=== PATIENT | female | born 1965 | race Caucasian/White ===

== ENCOUNTER 2017-06-23 16:55 | Observation (INO) | payer SELFPAY ==
[2017-06-23] MEDS ORDERED: ASPIRIN 81 MG CHEWABLE TABLET PO ONE (17:12)
[2017-06-23] MEDS ORDERED: 0.9 % SODIUM CHLORIDE 500ML 500 ML IV ONE (17:18)
[2017-06-23 17:22] LABS: BASO % 0.5 % (0-6); EOS % 1.5 % (0-6); GRAN % 72.7 % (47-80); HEMATOCRIT 38.6 % (35.0-47.0); HEMOGLOBIN 12.6 gm/dl (11.6-16.0); LYMPH % 17.6 % (16-45); MEAN CELL VOLUME 95.8 fl (81-97); MEAN CORPUSCULAR HEMOGLOBIN 31.3 pg (27-33); MEAN CORPUSCULAR HGB CONC 32.6 g/dl (32-36); MEAN PLATELET VOLUME 11.5 fl (7.4-10.4); MONO % 7.7 % (0-9); PLATELET COUNT 275 K/uL (130-400); RED BLOOD COUNT 4.03 M/uL (3.80-5.40); RED CELL DISTRIBUTION WIDTH 15.1 % (11.5-14.5); WHITE BLOOD COUNT W/O DIFF 13.1 K/uL (4.2-12.2)
[2017-06-23] MEDS: NITROGLYCERIN 0.4MG SL TABLET #25 BTL SL PRN ×6 (17:25→21:50)
--- NOTE | 2017-06-23 17:28 | Emergency Department Record ---
History of Present Illness - General Chief Complaint: Chest Pain Stated Complaint: CHEST PAIN Time Seen by Provider: 06/23/17 17:06 Source: Patient Mode of Arrival: Wheelchair Limitations: No limitations - History of Present Illness Initial Comments: pt developed cp while watching a game on tv and eating almonds 45 minutes ago. she states it is sharp and radiates from her l chest down her l arm. it is constant. pt broke out in a sweat. she has never had anything like this before. pt has high cholesterol and hypertension and is supposed to be taking meds for this but has not been taking them because she lost her insurance. pt smokes. pt has no cardiac family hx. pt went on a long trip a week ago to [place]. Complaint: Chest pain Onset/Timin -: Minutes(s) Onset: During rest Pain Location: Substernal Pain Radiation: LUE Severity scale (1-10): 8 Quality: Other Consistency: Constant Improves With: Nothing Worsens With: Nothing Anginal Symptoms: Diaphoresis Treatments Prior to Arrival: None - Related Data On Oral Contraceptives: No Home Medications Medication Instructions Recorded Confirmed Last Taken No Home Med [NO HOME MEDS] 06/23/17 06/23/17 Unknown Allergies Allergy/AdvReac Type Severity Reaction Status Date / Time amoxicillin [From Augmentin] Allergy HIVES Verified 06/23/17 17:01 clavulanic acid Allergy HIVES Verified 06/23/17 17:01 [From Augmentin] Travel Screening - Travel/Exposure Within Last 30 Days Have you traveled within the last 30 days?: No Review of Systems Reviewed: No additional complaints except as noted below Constitutional: Reports: As per HPI. Denies: Chills, Fever, Malaise, Night sweats, Weakness, Weight change Eyes: Reports: As per HPI. Denies: Eye discharge, Eye pain, Photophobia, Vision change ENT: Reports: As per HPI. Denies: Congestion, Dental pain, Ear pain, Epistaxis , Hearing loss, Throat pain Respiratory: Reports: As per HPI. Denies: Cough, Dyspnea, Hemoptysis, Stridor, Wheezes Cardiovascular: Reports: As per HPI. Denies: Arrhythmia, Chest pain, Dyspnea on exertion, Edema, Murmurs, Orthopnea, Palpitations, Paroxysmal nocturnal dyspnea, Rheumatic Fever, Syncope Endocrine: Reports: As per HPI. Denies: Fatigue, Heat or cold intolerance, Polydipsia, Polyuria Gastrointestinal: Reports: As per HPI. Denies: Abdominal pain, Constipation, Diarrhea, Hematemesis, Hematochezia, Melena, Nausea, Vomiting Genitourinary: Reports: As per HPI. Denies: Abnormal menses, Discharge, Dyspareunia, Dysuria, Frequency, Hematuria, Incontinence, Retention, Urgency Musculoskeletal: Reports: As per HPI. Denies: Arthralgia, Back pain, Gout, Joint swelling, Myalgia, Neck pain Skin: Reports: As per HPI. Denies: Bruising, Change in color, Change in hair/ nails, Lesions, Pruritus, Rash Neurological: Reports: As per HPI. Denies: Abnormal gait, Confusion, Headache, Numbness, Paresthesias, Seizure, Tingling, Tremors, Vertigo, Weakness Psychiatric: Reports: As per HPI. Denies: Anxiety, Auditory hallucinations, Depression, Homicidal thoughts, Suicidal thoughts, Visual hallucinations Hematological/Lymphatic: Reports: As per HPI. Denies: Anemia, Blood Clots, Easy bleeding, Easy bruising, Swollen glands Past Medical History - SOCIAL HISTORY Smoking Status: Current every day smoker Alcohol Use: None Drug Use: None - RESPIRATORY Hx Respiratory Disorders: No - CARDIOVASCULAR Hx Cardio Disorders: No - NEURO Hx Neuro Disorders: No - GI Hx GI Disorders: No - Hx Genitourinary Disorders: No - ENDOCRINE Hx Endocrine Disorders: No - MUSCULOSKELETAL Hx Musculoskeletal Disorders: No - PSYCH Hx Psych Problems: No - HEMATOLOGY/ONCOLOGY Hx Hematology/Oncology Disorders: No Family Medical History Any Significant Family History?: Yes Hx Heart Disease: Grandparents Physical Exam - General General Appearance: Alert, Oriented x3, Cooperative, Mild distress - Head Head exam: Normal inspection - Eye Eye exam: Normal appearance, PERRL, EOMI Pupils: Normal accommodation - ENT ENT exam: Normal exam, Mucous membranes moist, Normal external ear exam, Normal orophraynx Ear exam: Normal external inspection. negative: External canal tenderness Nasal Exam: Normal inspection. negative: Discharge, Sinus tenderness Mouth exam: Normal external inspection, Tongue normal Teeth exam: Normal inspection. negative: Dental caries Throat exam: Normal inspection. negative: Tonsillar erythema, Tonsillar exudate - Neck Neck exam: Normal inspection, Full ROM. negative: Tenderness - Respiratory Respiratory exam: Normal lung sounds bilaterally. negative: Respiratory distress - Cardiovascular Cardiovascular Exam: Regular rate, Normal rhythm, Normal heart sounds - GI/Abdominal GI/Abdominal exam: Soft, Normal bowel sounds. negative: Tenderness - Rectal Rectal exam: Deferred - exam: Deferred - Extremities Extremities exam: Normal inspection, Full ROM, Normal capillary refill. negative: Tenderness - Back Back exam: Reports: Normal inspection, Full ROM. Denies: Muscle spasm, Rash noted, Tenderness - Neurological Neurological exam: Alert, CN II-XII intact, Normal gait, Oriented X3 - Psychiatric Psychiatric exam: Normal affect, Normal mood - Skin Skin exam: Dry, Intact, Normal color, Warm Course Vital Signs 06/23/17 16:56 Pulse Rate 54 L Respiratory 12 Rate Blood Pressure 169/105 Pulse Ox 97 - Reevaluation(s) Reevaluation #1: 06/23/17 18:57 ntg did not help pain. Medical Decision Making - Lab Data Result diagrams: 06/23/17 17:10 06/23/17 17:10 Disposition Disposition: Admit Clinical Impression: Chest pain Qualifiers: Chest pain type: unspecified Qualified Code(s): R07.9 - Chest pain, unspecified Disposition: Still a Patient at [facility] Decision to Admit: Admit from ER Decision to Admit Date: 06/23/17 Decision to Admit Time: 18:26 Condition: (2) Stable Forms: Patient Portal Access Quality - Quality Measures Quality Measures: N/A - Blood Pressure Screening Does Patient Have Any of the Following: No Blood Pressure Classification: Hypertensive Reading Systolic Measurement: 169 Diastolic Measurement: 105 Screening for High Blood Pressure: < First Hypertensive BP, F/U Documented > [ [id number]] First Hypertensive Follow-up Interventions: Follow-up with rescreen GT 1 day and LT 4 weeks., Referral to alternative/primary care provider.
[2017-06-23 17:34] LABS: ANION GAP 8.3 (7-16); BLOOD UREA NITROGEN 11 mg/dL (7-17); CARBON DIOXIDE 25.7 mmol/L (22-30); CREATINE PHOSPHOKINASE 114 U/L (30-135); CREATININE 0.9 mg/dL (0.52-1.04); EST GLOMERULAR FILTRATION RATE > 60 ml/min; GLUCOSE,RANDOM 147 mg/dL (70-110)
[2017-06-23] MEDS ORDERED: MORPHINE SULFATE 5 MG/ML PFS IVP ONE (17:43)
[2017-06-23 17:47] LABS: TROPONIN I < 0.012 ng/mL (0.00-0.034)
[2017-06-23] MEDS ORDERED: ONDANSETRON HCL IV 4 MG/2 ML VIAL IVP ONE (18:51)
[2017-06-23] MEDS ORDERED: KETOROLAC 30 MG/ML VIAL IVP ONE (18:51)
[2017-06-23] MEDS ORDERED: TEMAZEPAM 15 MG CAPSULE PO PRN (21:11)
[2017-06-23 22:15] LABS: CKMB 5.8 ug/L (0-6)
[2017-06-23 22:35] LABS: TROPONIN I 0.336 ng/mL (0.00-0.034)
--- NOTE | 2017-06-23 22:47 | Physician Progress Note ---
Subjective - Date Date of Physician Progress Note: 06/23/17 - Subjective Subjective Comment: 9:57pm- Gloria RN, contact me re patient's L sided CP that radiated down left arm. This resolved with 3 nitro. EKG ordered. per nursing staff, NSR occ PVCS. repeat troponin ordered which is elevated at .336 (previously normal). ED physician, Dr. Church, contacted. He reviewed patient's EKG which he states is NSR with lateral lead depression (unchanged from EKG performed earlier in the ED per Dr. Church). during CP, gloria reports BP 141/100, BP 121/70 following 3 Nitros. Pain rated 7/10. I did ask if he evaluated patient, however he states the emergency room is too full for him to leave at this time. While I was on the phone with Dr. Church, Gloria, the nurse, was getting in [place] [facility] [place] [facility] [place] need [place]. During this time, patient expressed her choice to not be transferred. She said she wanted a "second opinion." Gloria reminded patient that Dr. Church also found patient appropriate to transfer for further cardiac care. I was placed on the phone with patient and explained what her EKG and labs may indicate she's having a heart attack. She states " i don't care, I want to go home." She started attempting to pull her IV out per nursing. She states " i'm going home." Gloria then got on the phone and states he's going to manage patient and call me back. I overheard Gloria also educating patient on what may be going on and how she may not live if she leaves the hospital against our advice. 10:20- Dr. Church contacted. 10:20- Gloria discussing need for transfer with patient 10:30- Gloria contacted me re patient's request to leave. Gloria and I educating patient on heart damage/myocardial infarctions 10:40- Gloria called, patient left AMA. signed AMA paper work. Patient's present during this time. He encouraged patient to listen to staff, however patient' threatened to punch her in the face and left. agrees to take patient immediately to a larger hospital (such as [facility]) if she begins having CP, upper extremity pain, sweating, diff in breathing). agrees with plan. both and left the hospital. Objective - Vital Signs Vital Signs: Vital Signs - Last 24 Hrs Temp Pulse Pulse Resp BP Pulse Ox 06/23/17 21:50 69 20 98 06/23/17 21:00 78 16 06/23/17 20:49 98.7 F 82 18 136/107 98 - General General Appearance: Alert, Oriented x3, Cooperative, Mild distress Limitations: No limitations - Head Head exam: Normal inspection - Eye Eye exam: Normal appearance, PERRL, EOMI Pupils: Normal accommodation - ENT ENT exam: Normal exam, Mucous membranes moist, Normal external ear exam, Normal orophraynx Ear exam: Normal external inspection. negative: External canal tenderness Nasal Exam: Normal inspection. negative: Discharge, Sinus tenderness Mouth exam: Normal external inspection, Tongue normal Teeth exam: Normal inspection. negative: Dental caries Throat exam: Normal inspection. negative: Tonsillar erythema, Tonsillar exudate - Neck Neck exam: Normal inspection, Full ROM. negative: Tenderness - Respiratory Respiratory exam: Normal lung sounds bilaterally. negative: Respiratory distress - Cardiovascular Cardiovascular Exam: Regular rate, Normal rhythm, Normal heart sounds - GI/Abdominal GI/Abdominal exam: Soft, Normal bowel sounds. negative: Tenderness - Rectal Rectal exam: Deferred - exam: Deferred - Extremities Extremities exam: Normal inspection, Full ROM, Normal capillary refill. negative: Tenderness - Back Back exam: Reports: Normal inspection, Full ROM. Denies: Muscle spasm, Rash noted, Tenderness - Neurological Neurological exam: Alert, CN II-XII intact, Normal gait, Oriented X3 - Psychiatric Psychiatric exam: Normal affect, Normal mood - Skin Skin exam: Dry, Intact, Normal color, Warm Results - Labs Result Diagrams: 06/23/17 17:10 06/23/17 17:10 Labs Last 24 Hours: Laboratory Results - last 24 hr 06/23/17 21:38 CK-MB (CK-2) 5.8 Troponin I 0.336 H* DVT/PE Assessment - Risk for VTE Risk for VTE: Yes Risk Level: High Risk Assessment Date: 06/23/17 Risk Assessment Time: 22:45 VTE Orders Placed or Will Be Placed: No VTE Reason for No Prophylaxis: Treatment Not Tolerated (patient left ama) - Active Medicaitons Current Medications: Current Medications Aspirin (Ecotrin (Ec)) 325 mg PO DAILY AC Sodium Chloride () 500 mls @ 15 mls/hr IV .Q24H ONE Stop: 06/24/17 17:17 Last Admin: 06/23/17 17:23 Dose: 15 mls/hr Temazepam (Restoril) 15 mg PO QHS PRN PRN Reason: INSOMNIA AMI Plan - Labs Result Diagrams: 06/23/17 17:10 06/23/17 17:10
--- NOTE | 2017-06-24 01:38 | CT ANGIOGRAM REPORT ---
EXAM: CT ANGIOGRAM CHEST CTA w contrast HISTORY: CHEST PAIN. TECHNIQUE: CT angiography of the thorax is performed following intravenous contrast administration. 91 mL of Omnipaque-350 contrast are used for this examination. Coronal and sagittal postprocessed MIP images are performed on an independent workstation as part of this examination. COMPARISON: None. FINDINGS: No aortic aneurysm or aortic dissection. 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 There are no pulmonary emboli. There is no area of lung consolidation. No pleural or pericardial effusion. There is no lung mass or lung nodule identified. No mediastinal mass or adenopathy. No enlarged hilar lymph nodes. A few faint coronary artery calcifications are present. Limited images of the upper abdomen demonstrate enlargement of the left adrenal gland. Right adrenal gland unremarkable. Upper abdomen otherwise unremarkable. IMPRESSION: 1. NO PULMONARY EMBOLI ARE SEEN. NO AORTIC ANEURYSM OR AORTIC DISSECTION. 2. 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 3. NO ACUTE THORACIC PROCESS IDENTIFIED. 4. TRACE AMOUNT OF CORONARY ARTERY CALCIFICATION PRESENT. 5. ENLARGEMENT OF THE LEFT ADRENAL GLAND, POSSIBLY REPRESENTING AN ADRENAL ADENOMA. UPPER ABDOMEN OTHERWISE UNREMARKABLE. CT SCAN IN SIX TO TWELVE MONTHS TIME COULD BE PERFORMED. JOB NUMBER: [id number] MTDD
[2017-06-24] MEDS ORDERED: ASPIRIN 325 MG TAB ENTERIC-COATED PO SCH (10:00)
== END 2017-06-23 22:40 | disposition left against medical advice (07) ==
LOC: ER 16:55 → MEDSURG 20:38
PROVIDERS: ADMIT Family Medicine; ATTEND Family Medicine
DX: R07.9 Chest pain, unspecified (principal); I10 Essential (primary) hypertension; E78.00 Pure hypercholesterolemia, unspecified; F17.200 Nicotine dependence, unspecified, uncomplicated
CPT/HCPCS: 99285 ×2; 96374; 96375; 82550; 85025; 82553; 84484; 80048; 85379; 83880; 71275; 94760; 93005; 93010; G0378; Q9967; J1885; J2405; J2270